=== PATIENT | female | born 1955 | race Caucasian/White ===

== ENCOUNTER 2021-09-11 05:51 | Inpatient (IN) ==
[2021-09-06 11:08] LABS: Basophils % 0.6 % (0.0-0.8); Eosinophils # 0.1 10*3/uL (0.0-0.87); Hematocrit 41.4 VOL% (35.7-47.0); Hemoglobin 13.5 GM/DL (12.0-16.0); Immature Granulocytes % 0.4 %; Immature Granulocytes Absolute 0.03 #; Lymphocytes # 1.3 10*3/uL (1.4-4.0); Lymphocytes % 17.9 % (21.3-54.2); Mean Corpuscular HGB Conc 32.6 GM/DL (32-36); Mean Corpuscular Volume 95.6 FL (87-102); Monocytes # 0.5 10*3/uL (0.11-0.8); Monocytes % 6.9 % (1.7-12.7); Neutrophils % 73.2 % (38.7-73.9); Platelet Count 301 T/CUMM (130-400); Red Blood Count 4.33 MC/CUMM (3.8-5.5); Red Cell Distribution Width 12.4 % (9.3-17.3)
[2021-09-06 11:32] LABS: Albumin 3.5 G/DL (3.4-5.0); Bilirubin,Total 0.5 MG/DL (0.20-1.00); Calcium 9.4 MG/DL (8.5-10.1); Osmolality,Calculated 271.8 MOS/KG (273-304); Potassium 4.5 MMOL/L (3.5-5.1); Total Protein 7.4 G/DL (6.4-8.2)
[2021-09-11] MEDS ORDERED: MIDAZOLAM 2 MG/2 ML VIAL ONE (06:24)
[2021-09-11] MEDS ORDERED: fentaNYL 100 MCG/2 ML VIAL ONE ×2 (06:24→07:19)
[2021-09-11] MEDS ORDERED: INDOCYANINE GREEN 25 MG VIAL IV ONE (06:38)
[2021-09-11] MEDS ORDERED: ROPIVACAINE 0.5% 30 ML VIAL ONE (06:42)
[2021-09-11] MEDS ORDERED: ALVIMOPAN 12 MG CAPSULE PO ONE (07:00)
[2021-09-11] MEDS ORDERED: LACTATED RINGERS 1,000 ML IV SCH (07:00)
[2021-09-11] MEDS ORDERED: cefTRIAXone 1,000 MG in SODIUM CHLORIDE 0.9% 100 ML IV ONE (07:00)
[2021-09-11] MEDS ORDERED: propofoL 200 MG/20 ML VIAL IV ONE (08:19)
[2021-09-11] MEDS ORDERED: LIDOCAINE 2% 5 ML VIAL ONE (08:19)
[2021-09-11] MEDS ORDERED: DEXAMETHASONE 4 MG/1 ML VIAL ONE (08:20)
[2021-09-11] MEDS ORDERED: PHENYLEPHRINE 1 MG/10 ML SYRINGE IV ONE (08:20)
[2021-09-11] MEDS ORDERED: LACTATED RINGERS 1,000 ML IV ONE (08:20)
[2021-09-11] MEDS ORDERED: ACETAMINOPHEN INJ 1,000 MG/100 ML VIAL IV ONE (08:20)
[2021-09-11] MEDS ORDERED: ONDANSETRON 4 MG/2 ML VIAL ONE (08:20)
[2021-09-11] MEDS ORDERED: MANNITOL 12.5 GM/50 ML VIAL IV ONE ×2 (08:22→11:17)
[2021-09-11] MEDS ORDERED: NEOSTIGMINE 10 MG/10 ML VIAL ONE (10:24)
[2021-09-11] MEDS ORDERED: SEVOFLURANE 1 UNIT/15 MINUTE INH ONE (10:27)
[2021-09-11] MEDS ORDERED: GLYCOPYRROLATE 0.4 MG/2 ML VIAL ONE (10:27)
[2021-09-11] MEDS ORDERED: SIMETHICONE CHEW 125 MG TABLET PO PRN (10:34)
[2021-09-11] MEDS ORDERED: ONDANSETRON 4 MG/2 ML VIAL IV PRN (10:34)
[2021-09-11] MEDS ORDERED: PROMETHAZINE 25 MG/1 ML VIAL IM PRN (10:34)
[2021-09-11] MEDS ORDERED: diphenhydrAMINE 50 MG/1 ML VIAL IV PRN (10:34)
[2021-09-11] MEDS ORDERED: HYDROmorphone 1 MG/1 ML SYRINGE IV PRN (10:34)
[2021-09-11 11:07] LABS: Mucus,Urine Occasional /LPF (Occasional); RBC,Urine <1 /HPF (0-4)
[2021-09-11 11:11] LABS: Glucose,Urine (UA) Negative (Negative); Ketones,Urine Negative (Negative); Nitrite,Urine Negative (Negative); Protein,Urine Negative (Negative); Urine Appearance Clear (Clear); Urine Color Yellow (Yellow)
[2021-09-11 11:12] LABS: Bilirubin,Urine Negative (Negative); Blood, Urine Trace mg/dL (Negative); Urine Urobilinogen 0.2 eU/dL (<2.0)
[2021-09-11] MEDS ORDERED: MEPERIDINE 25 MG/1 ML VIAL IV PRN (11:24)
[2021-09-11] MEDS ORDERED: MEPERIDINE 25 MG/1 ML VIAL ONE (11:27)
[2021-09-11] MEDS: SODIUM CHLORIDE 0.9% 1,000 ML IV SCH (11:30)
[2021-09-11 12:07] LABS: Basophils % 0.1 % (0.0-0.8); Hematocrit 38.6 VOL% (35.7-47.0); Hemoglobin 12.7 GM/DL (12.0-16.0); Immature Granulocytes % 0.3 %; Immature Granulocytes Absolute 0.03 #; Lymphocytes # 0.4 10*3/uL (1.4-4.0); Lymphocytes % 4.2 % (21.3-54.2); Mean Corpuscular HGB Conc 32.9 GM/DL (32-36); Mean Corpuscular Volume 96.3 FL (87-102); Mean Platelet Volume 9.2 FL (9.6-12.0); Monocytes # 0.1 10*3/uL (0.11-0.8); Monocytes % 0.9 % (1.7-12.7); Neutrophils % 94.5 % (38.7-73.9); Platelet Count 286 T/CUMM (130-400); Red Blood Count 4.01 MC/CUMM (3.8-5.5); Red Cell Distribution Width 12.5 % (9.3-17.3)
[2021-09-11 12:24] LABS: Calcium 8.8 MG/DL (8.5-10.1); Potassium 3.9 MMOL/L (3.5-5.1)
[2021-09-11 12:56] LABS: Band Neutrophils 2 % (0-10); Lymphocytes 1 % (20-55); Total Cells Counted 100
[2021-09-11 12:57] LABS: Platelet Estimate Adequate
[2021-09-11] MEDS: ACETAMINOPHEN 325 MG TABLET PO SCH ×3 (13:07→23:48)
[2021-09-11] MEDS: oxyCODONE/ACETAMINOPHEN 5-325 MG TABLET PO PRN ×2 (17:18→21:17)
[2021-09-11] MEDS: ALVIMOPAN 12 MG CAPSULE PO SCH (21:16)
[2021-09-11] MEDS: DOCUSATE SODIUM 100 MG CAPSULE PO SCH (21:16)
[2021-09-11] MEDS: MINERAL OIL/PETROLATUM OPH OINT 3.5 GM TUBE RIGHT EYE SCH (21:16)
[2021-09-11] MEDS: GENTAMICIN 0.3% OPH OINT 3.5 GM TUBE RIGHT EYE SCH (21:17)
[2021-09-12] MEDS: oxyCODONE/ACETAMINOPHEN 5-325 MG TABLET PO PRN ×2 (03:00→17:01)
[2021-09-12] MEDS: SODIUM CHLORIDE 0.9% 1,000 ML IV SCH ×2 (04:00→09:50)
[2021-09-12] MEDS: ACETAMINOPHEN 325 MG TABLET PO SCH ×4 (05:30→22:18)
[2021-09-12 05:41] LABS: Basophils % 0.2 % (0.0-0.8); Hematocrit 35.1 VOL% (35.7-47.0); Hemoglobin 11.5 GM/DL (12.0-16.0); Immature Granulocytes % 0.6 %; Immature Granulocytes Absolute 0.06 #; Lymphocytes # 1.2 10*3/uL (1.4-4.0); Lymphocytes % 11.9 % (21.3-54.2); Mean Corpuscular HGB Conc 32.8 GM/DL (32-36); Mean Corpuscular Volume 95.6 FL (87-102); Monocytes # 0.9 10*3/uL (0.11-0.8); Monocytes % 8.8 % (1.7-12.7); Neutrophils % 78.5 % (38.7-73.9); Platelet Count 305 T/CUMM (130-400); Red Blood Count 3.67 MC/CUMM (3.8-5.5); Red Cell Distribution Width 12.4 % (9.3-17.3)
[2021-09-12 05:57] LABS: Calcium 8.3 MG/DL (8.5-10.1); Potassium 4.2 MMOL/L (3.5-5.1)
[2021-09-12] MEDS: DOCUSATE SODIUM 100 MG CAPSULE PO SCH ×2 (08:52→21:37)
[2021-09-12] MEDS: ALVIMOPAN 12 MG CAPSULE PO SCH ×2 (08:52→21:37)
[2021-09-12] MEDS: cefTRIAXone 1,000 MG in SODIUM CHLORIDE 0.9% 100 ML IV SCH (08:53)
[2021-09-12] MEDS: GENTAMICIN 0.3% OPH OINT 3.5 GM TUBE RIGHT EYE SCH ×2 (10:24→16:32)
[2021-09-12] MEDS: AZITHROMYCIN 1% RIGHT EYE SCH ×2 (17:58→22:13)
[2021-09-12] MEDS: MINERAL OIL/PETROLATUM OPH OINT 3.5 GM TUBE RIGHT EYE SCH (23:58)
[2021-09-13] MEDS: ACETAMINOPHEN 325 MG TABLET PO SCH ×3 (00:21→12:07)
[2021-09-13] MEDS: oxyCODONE/ACETAMINOPHEN 5-325 MG TABLET PO PRN (01:22)
[2021-09-13 05:27] LABS: Basophils % 0.4 % (0.0-0.8); Eosinophils % 0.4 % (0.00-10.9); Hematocrit 35.5 VOL% (35.7-47.0); Hemoglobin 11.4 GM/DL (12.0-16.0); Immature Granulocytes % 0.4 %; Immature Granulocytes Absolute 0.04 #; Lymphocytes # 1.1 10*3/uL (1.4-4.0); Lymphocytes % 10.8 % (21.3-54.2); Mean Corpuscular HGB Conc 32.1 GM/DL (32-36); Mean Corpuscular Volume 96.5 FL (87-102); Mean Platelet Volume 9.9 FL (9.6-12.0); Monocytes # 0.6 10*3/uL (0.11-0.8); Platelet Count 278 T/CUMM (130-400); Red Blood Count 3.68 MC/CUMM (3.8-5.5); Red Cell Distribution Width 12.6 % (9.3-17.3); White Blood Count 10.2 T/CUMM (4-12)
[2021-09-13 05:46] LABS: Calcium 8.7 MG/DL (8.5-10.1); Osmolality,Calculated 271.7 MOS/KG (273-304); Potassium 3.3 MMOL/L (3.5-5.1)
[2021-09-13] MEDS ORDERED: POTASSIUM CHLORIDE 20 MEQ TABLET PO ONE (07:30)
[2021-09-13] MEDS: ALVIMOPAN 12 MG CAPSULE PO SCH (08:32)
[2021-09-13] MEDS: DOCUSATE SODIUM 100 MG CAPSULE PO SCH (08:33)
[2021-09-13] MEDS: cefTRIAXone 1,000 MG in SODIUM CHLORIDE 0.9% 100 ML IV SCH (08:33)
[2021-09-13] MEDS ORDERED: AZITHROMYCIN 1% RIGHT EYE SCH (09:00)
[2021-09-13 17:55] VITALS: BP 145/55
== END 2021-09-13 16:35 | disposition home or self-care (01) | DRG 657 ==
LOC: N.OR 05:51 → N.SDSINP 05:58 → N.3E 11:46
PROVIDERS: ADMIT Surgery; ATTEND Surgery